=== PATIENT | male | born 1950 | race Caucasian/White ===

== ENCOUNTER 2024-06-09 14:46 | Emergency (ER) | payer MEDICARE, SELFPAY ==
[2024-06-09 14:57] VITALS: BP 127/66; PULSE 97; RESP 16; TEMP 36.8; O2SAT 97
--- NOTE | 2024-06-09 15:14 | ED.GENADUL_ITS ---
Discharge Plan Disposition Patient Disposition: Home Condition: Stable Discharge Details Clinical Impression: Rash Primary Care Provider: Debra Diaz ED Provider: Augusto Villalobos Home Meds and New Rx's Prescriptions: Continued rosuvastatin 10 mg tablet 10 mg PO DAILY Discharge Instructions Instructions: Skin Rash ED Additional Instructions: If you develop a blistering rash consistent with shingles on your abdomen, please start antiviral medicine as prescribed. Please contact your primary care physician to arrange follow-up. Return to the ER immediately for any worsening or new concerning symptoms. HPI General Mode of arrival: ambulatory . Date/Time Provider Initiated Documentation: 06/09/24 14:48 . Limitations to Documentation: no limitations . Information obtained by: patient . HPI Narrative: 73-year-old male presents with chief complaint of rash. Patient notes over the past few hours he has had a tingly itchy sensation of his right abdomen as well as his right inner forearm. He believes there to be a subtle redness to the rash. He is concerned that he may have been exposed to a Pickett tussock moth caterpillar today. He is also concerned for shingles. Related Data Home Medications ?Medication ?Instructions ?Recorded ?Confirmed rosuvastatin 10 mg tablet 10 mg PO DAILY 06/09/24 06/09/24 Allergies Allergy/AdvReac Type Severity Reaction Status Date / Time shellfish derived Allergy Severe Anaphylaxis Verified 06/09/24 15:00 General Stated Complaint: RashLesion DALIA: 4 Review of Systems Constitutional Constitutional: Denies fever(s) Integumentary/Breasts Skin/Breast: Reports as per HPI Exam Const General: no acute distress HENMT Mouth: moist mucous membranes Eyes Conjunctivae: normal conjunctivae Cardio Rate: regular rate and not tachycardic GI Palpation: soft, not firm, no guarding, no masses, not rigid and nontender Skin General skin exam: no rashes or lesions noted Rashes: rashes noted Other: Sparsely distributed macular rash on bilateral forearms (patient notes chronic intermittent heat rash); no appreciable rash on abdomen Neuro General: patient alert, patient awake and tone normal Extrem General: no edema Course Vital Signs Vital signs: Vital Signs Temperature 36.8 C 06/09/24 14:57 Pulse 97 H 06/09/24 14:57 Respiratory Rate 16 06/09/24 14:57 Blood Pressure 127/66 06/09/24 14:57 Pulse Oximetry 97 06/09/24 14:57 Temperature 36.8 C 06/09/24 14:57 Pulse 97 H 06/09/24 14:57 Respiratory Rate 16 06/09/24 14:57 Respiratory Effort Normal 06/09/24 15:02 Blood Pressure 127/66 06/09/24 14:57 Pulse Oximetry 97 06/09/24 14:57 Oxygen Delivery Method Room Air 06/09/24 14:57 Oxygen Flow Rate 0 06/09/24 14:57 Pain Level 0 06/09/24 14:57 Medical Decision Making 73-year-old male here with itchy, tingling skin irritation to his right abdomen as well as right forearm. There is no rash that is concerning for shingles. Consider caterpillar dermatitis. There is no significant inflammation at this time. Plan for supportive care. I will provide prescription for Valtrex should he develop shingles rash on his abdomen although I think this will be unlikely given current distribution of symptoms. Quality:SDOH Health Related Social Needs: No Data to Display PFSH All Active Problems Rash (Acute) Social History Smoking/Tobacco Use Status: Former Tobacco Use Smoking risk assessment performed?: Yes Drug use: Never Housing: house Do you feel safe at home: Yes Do you feel safe in your relationship?: Yes
== END 2024-06-09 15:25 | disposition home or self-care (01) ==
LOC: ER 15:25
PROVIDERS: Emergency Provider Student in an Organized Health Care Education/Training Program; PCP Nurse Practitioner Family
DX: R21 Rash and other nonspecific skin eruption (principal)
CPT/HCPCS: 99282; 99283